=== PATIENT | male | born 1935 | race Caucasian/White ===

== ENCOUNTER → 2018-03-24 16:52 | Outpatient (CLI) | payer OTHER, SELFPAY ==
[2017-12-20 14:03] VITALS: BMI 41.4
== END ==
PROVIDERS: Family Provider Family Medicine; PCP Family Medicine; Referring Provider Nurse Practitioner Adult Health; Visit Provider Nurse Practitioner Adult Health
DX: R31.9 Hematuria, unspecified (principal)
CPT/HCPCS: 87077; 87086; 87088; 87186

== ENCOUNTER → 2018-04-14 15:48 | Outpatient (CLI) | payer MEDICARE, SELFPAY ==
[2017-12-20 14:03] VITALS: BMI 41.4
== END ==
PROVIDERS: Family Provider Family Medicine; PCP Family Medicine; Referring Provider Nurse Practitioner Adult Health; Visit Provider Nurse Practitioner Adult Health
DX: R39.15 Urgency of urination (principal)
CPT/HCPCS: 87086; 87088